=== PATIENT | male | born 1985 | race African-American/Black ===

== ENCOUNTER 2024-01-06 17:51 | Emergency (ER) | payer BC, SELFPAY ==
--- NOTE | ~2024-01-06 | CT_ITS ---
EXAMINATION: CTA chest PE protocol DATE: 01/06/2024 21:00 INDICATION: Shortness of breath. TECHNIQUE: Computed tomography angiography (CTA) of the chest was performed with 100 mL Omnipaque-350 intravenous contrast timed to evaluate the pulmonary arteries. Coronal maximum intensity projection 3D-reconstructions were created by the technologist. Automated exposure control and iterative reconst ruction technique were employed. The dose-length product was 257.19 mGy-cm. COMPARISON: None. FINDINGS: There are airspace and groundglass opacities with air bronchograms and nodules involving al l lobes. No pleural effusion. The heart size is normal. No pericardial effusion. There is no pulmonar y embolus. There is mediastinal and bilateral hilar lymphadenopathy. The liver demonstrates heterogen eous attenuation. There is mild thoracic spondylosis. IMPRESSION: 1. No pulmonary embolus. 2. Diffuse lung disease. The normal white blood cell count and normal BNP suggest this may be chronic lung disease. The differential diagnosis includes pneumonia, chronic eosinophilic pneumonia, organiz ing pneumonia, sarcoid, vasculitis, granulomatosis with pulmonary angiitis, pulmonary alveolar protei nosis, and pneumoconiosis. 3. Mild mediastinal and bilateral hilar lymphadenopathy. 4. Heterogeneous liver. The lack of contrast decreases sensitivity and specificity. The differential diagnosis includes hepatic steatosis, sarcoid, metastatic disease, and cirrhosis. Abdomen MRI without and with contrast is recommended. Reviewed, dictated and finalized at location E. IMPRESSION: 1. No pulmonary embolus. 2. Diffuse lung disease. The normal white blood cell count and normal BNP sugge st this may be chronic lung disease. The differential diagnosis includes pneumo karina, chronic eosinophilic pneumonia, organizing pneumonia, sarcoid, vasculitis, granulomatosis with pulmonary angiitis, pulmonary alveolar proteinosis, and pn eumoconiosis. 3. Mild mediastinal and bilateral hilar lymphadenopathy. 4. Heterogeneous liver. The lack of contrast decreases sensitivity and specific ity. The differential diagnosis includes hepatic steatosis, sarcoid, metastatic disease, and cirrhosis. Abdomen MRI without and with contrast is recommended.
--- NOTE | ~2024-01-06 | XR_ITS ---
EXAMINATION: XR chest 2V DATE: 01/06/2024 18:25 INDICATION: Dyspnea. TECHNIQUE: Frontal and lateral views of the chest were obtained. COMPARISON: None. FINDINGS: There are airspace opacities in all lung zones bilaterally with sparing of the costophrenic angles. No pleural effusion or pneumothorax. The heart size is normal. IMPRESSION: 1. Diffuse lung disease, consistent with pulmonary edema versus pneumonia. Reviewed, dictated and finalized at location E.
[2024-01-06 17:53] VITALS: BP 178/99; PULSE 63; RESP 20; TEMP 36.6; O2SAT 99
--- NOTE | 2024-01-06 18:03 | ECG_ITS ---
SEE SCANNED COPY FOR CONFIRMED REPORT MTDD
--- NOTE | 2024-01-06 18:09 | ED.GENADULT ---
HPI - General Adult General Chief complaint: Shortness of Breath/Dyspnea <Haseeb Henderson PA-C - Last Filed: 01/06/24 18:11> Stated complaint: SOB <Haseeb Henderson PA-C - Last Filed: 01/06/24 18:11> Time Seen by Provider: 01/06/24 18:08 <Haseeb Henderson PA-C - Last Filed: 01/06/24 18:11> Focused HPI: This is a 38-year-old male with PMH of PE who presents to the ED with chief complaint of several months of shortness of breath. Patient reports that he gets really winded whenever doing activities and it is hard to recover. Reports in 2007 he had a PE and was treated with warfarin but is no longer taking that medication. Denies chest pain, syncope, cough, wheezing or recent illness. Denies fevers or chills. Denies leg swelling, palpitations. States he has been seen by his primary care who was concerned about his blood pressure. They wanted him to be seen for the shortness of breath and rule out the possibility of a PE since he has history of this. GENERAL: Well-appearing, well-nourished, and in no acute distress. HEAD: Normocephalic, atraumatic. CHEST: Clear to auscultation. No respiratory distress. HEART: Regular rate and rhythm. NEURO: Alert and oriented x3. Patient screened in triage and initial orders placed. Additional care and disposition to be based upon diagnostic testing and treatment. <Haseeb Henderson PA-C - Last Filed: 01/06/24 18:11> Source: patient <Haseeb Henderson PA-C - Last Filed: 01/06/24 18:11> Mode of arrival: ambulatory <MARISA Martinez Last Filed: 01/06/24 18:11> Limitations: no limitations <Haseeb Henderson PA-C - Last Filed: 01/06/24 18:11> Related Data Allergies/adverse reactions: Allergies Allergy/AdvReac Type Severity Reaction Status Date / Time No Known Allergies Allergy Verified 01/06/24 17:52 <Haseeb Henderson PA-C - Last Filed: 01/06/24 18:11> Review of Systems Review of Systems: All systems as dictated in HPI <MARISA Martinez Last Filed: 01/06/24 18:11> Exam Narrative: GENERAL: Well-appearing, well-nourished, and in no acute distress. HEAD: Normocephalic, atraumatic. EYES: PERRLA and EOMI. ENT: Nares clear, no rhinorrhea or epistaxis. Mucous membranes moist. Oropharynx without tonsillar hypertrophy exudate or other lesions. NECK: Supple. No adenopathy or masses. CHEST: No respiratory distress. Clear to auscultation. No wheezes rales or rhonchi HEART: Regular rate and rhythm. No murmur heard. Normal peripheral pulses. ABDOMEN: Soft, nontender, nondistended, normal active bowel sounds. MSK: Normal range of motion. No edema. SKIN: Warm, dry, no rash. NEURO: Alert and oriented x3. No focal deficits. PSYCH: Normal mood and affect. <Haseeb Henderson PA-C - Last Filed: 01/06/24 18:11> Course Vital Signs Vital signs: Vital Signs Temperature 97.8 F 01/06/24 17:53 Pulse Rate 63 01/06/24 17:53 Respiratory Rate 20 01/06/24 17:53 Blood Pressure 178/99 H 01/06/24 17:53 Pulse Oximetry 99 01/06/24 17:53 Oxygen Delivery Room Air 01/06/24 17:53 Temperature 97.8 F 01/06/24 17:53 Pulse Rate 53 L 01/06/24 22:01 Respiratory Rate 16 01/06/24 22:01 Blood Pressure 167/110 H 01/06/24 22:01 Pulse Oximetry 99 01/06/24 22:01 Oxygen Delivery Room Air 01/06/24 19:27 <Haseeb Henderson PA-C - Last Filed: 01/06/24 18:11> Vital Signs Temperature 97.8 F 01/06/24 17:53 Pulse Rate 63 01/06/24 17:53 Respiratory Rate 20 01/06/24 17:53 Blood Pressure 178/99 H 01/06/24 17:53 Pulse Oximetry 99 01/06/24 17:53 Oxygen Delivery Room Air 01/06/24 17:53 Temperature 97.8 F 01/06/24 17:53 Pulse Rate 53 L 01/06/24 22:01 Respiratory Rate 16 01/06/24 22:01 Blood Pressure 167/110 H 01/06/24 22:01 Pulse Oximetry 99 01/06/24 22:01 Oxygen Delivery Room Air 01/06/24 19:27 <Sam Mackey MD - Last Filed: 01/07/24 02:38> Medical Decision Making [facility] Narrati
[2024-01-06 18:34] LABS: Basophils Percent Auto 0.7 % (0.2-1.2); Eosinophils Absolute Auto 0.2 K/mm3 (0-0.3); Hematocrit 46.3 % (42.0-52.0); Immature Granulocyte Absolute 0.01 K/mm3 (0.00-0.031); Immature Granulocyte Percent A 0.2 % (0-0.5); Lymphocytes Absolute Auto 1.31 K/mm3 (0.9-3.2); Lymphocytes Percent Auto 29.3 % (18.3-44.2); Mean Corpuscular HGB Conc 32.4 g/dl (32-36); Mean Corpuscular Hemoglobin 30.9 pg (26-34); Mean Corpuscular Volume 95.3 fl (80-100); Mean Platelet Volume 9.2 fl (7.4-10.4); Monocytes Absolute Auto 0.9 K/mm3 (0.1-0.6); Monocytes Percent Auto 19.2 % (2.6-8.5); Neutrophils Absolute Auto 2.1 K/mm3 (1.3-6.7); Neutrophils Percent Auto 46.6 % (45.5-73.1); Platelet Count Result 192 k/mm3 (150-375); Red Blood Count 4.86 M/mm3 (4.6-6.20); Red Cell Distribution Width 13.9 % (11.5-14.5); White Blood Count 4.5 K/mm3 (4.5-10.0)
[2024-01-06 18:46] LABS: Alanine Aminotransferase 37 U/L (6-50); Albumin Level 4.5 g/dL (3.5-5.1); Alkaline Phosphatase 139 U/L (38-126); Anion Gap 7 mmol/L (4-12); Aspartate Amino Transferase 47 U/L (17-59); Bilirubin,Total 0.8 mg/dL (0.2-1.3); Blood Urea Nitrogen 12 mg/dL (9-20); Calcium 10.1 mg/dL (8.4-10.2); Carbon Dioxide 28 mmol/L (22-30); Chloride 105 mmol/L (98-107); Estimated CRCL calculation 67 ml/min; Estimated Glomerular Filt Rate > 60; Glucose 96 mg/dL (65-110); Potassium 3.8 mmol/L (3.4-5.0); Sodium 140 mmol/L (137-145)
[2024-01-06 19:00] LABS: NT Pro B Type Natriuretic Pept < 20 pg/mL (19.9-100); Troponin I < 0.012 ng/mL (0.000-0.034)
[2024-01-06 19:27] VITALS: O2SAT 99
[2024-01-06 19:57] LABS: D Dimer 1.05 ug/mL (<0.48)
[2024-01-06 20:19] LABS: Influenza A QL RT-PCR Negative (Negative); Influenza B QL RT-PCR Negative (Negative); RSV RNA, RT-PCR Negative (Negative); SARS-CoV-2 RNA PCR Negative (Negative)
[2024-01-06 21:08] VITALS: BP 161/98; PULSE 54; RESP 16; O2SAT 98
[2024-01-06 22:01] VITALS: BP 167/110; PULSE 53; RESP 16; O2SAT 99
== END 2024-01-06 22:03 | disposition home or self-care (01) ==
PROVIDERS: Physician Assistant; Emergency Provider Emergency Medicine; PCP Emergency Medicine
DX: R06.02 Shortness of breath (principal); Z20.822 Contact with and (suspected) exposure to COVID-19; Z86.711 Personal history of pulmonary embolism; R00.1 Bradycardia, unspecified; J98.4 Other disorders of lung
CPT/HCPCS: 36415; 71046; 71275; 80053; 83880; 84484; 85025; 85380; 87637; 93005; 99284; Q9967